=== PATIENT | male | born 1975 | race Two or more races ===

== ENCOUNTER 2022-03-31 09:48 | Emergency (ER) | payer BC ==
[~2022-03-31] VITALS: Ht 167.6 cm; Wt 70.3 kg
[2022-03-31] MEDS ORDERED: METOCLOPRAMIDE HCL 10 MG/2 ML VIAL ONE (10:06)
[2022-03-31] MEDS ORDERED: FAMOTIDINE. 20 MG/2 ML VIAL IV ONE (10:06)
[2022-03-31] MEDS ORDERED: MAG HYDROX/AL HYDROX/SIMETH 30 ML LIQUID UDC ONE (10:07)
[2022-03-31 10:12] LABS: HEMATOCRIT 45.4 % (36.7-47.1); MEAN CORPUSCULAR HEMOGLOBIN 29.3 uug (23.8-33.4); MEAN CORPUSCULAR VOLUME 87.4 fL (73.0-96.2); PLATELET COUNT (AUTO) 256 K/uL (152-348)
[2022-03-31] MEDS: METOCLOPRAMIDE HCL 10 MG/2 ML VIAL IV ONE (10:17)
[2022-03-31] MEDS: IV NORMAL SALINE 1000 ML BAG IV ONE (10:17)
[2022-03-31] MEDS: FAMOTIDINE. 20 MG/2 ML VIAL IV ONE (10:17)
[2022-03-31] MEDS: MAG HYDROX/AL HYDROX/SIMETH 30 ML LIQUID UDC PO ONE (10:18)
--- NOTE | 2022-03-31 10:21 | NUR ---
PT IS IN ROOM #2A. DR WHITNEY EVALUATED THE PT.
[2022-03-31 10:23] LABS: CARBON DIOXIDE 28 mmol/L (21-32); CHLORIDE 102 mmol/L (98-107); CREATININE 0.9 mg/dL (0.6-1.3); GLUCOSE 142 mg/dL (74-106); POTASSIUM 3.5 mmol/L (3.5-5.1); UREA NITROGEN, BLOOD 17 mg/dL (7-18)
[2022-03-31 10:32] LABS: ALANINE AMINOTRANSFERASE 24 U/L (16-63); ALKALINE PHOSPHATASE 87 U/L (50-136); ASPARTATE AMINOTRANSFERASE 11 U/L (15-37); BILIRUBIN,DIRECT 0.1 mg/dL (0.0-0.2); BILIRUBIN,TOTAL 0.3 mg/dL (0.2-1.0); LIPASE 78 U/L (73-393); TOTAL PROTEIN, SERUM 7.4 g/dL (6.4-8.2)
[2022-03-31] MEDS ORDERED: ONDA4TAB11 PO (11:42)
[2022-03-31] MEDS ORDERED: ONDANSETRON 4 MG/2 ML VIAL ONE (11:47)
[2022-03-31] MEDS: ONDANSETRON 4 MG/2 ML VIAL IV ONE (11:52)
--- NOTE | 2022-03-31 11:53 | NUR ---
PT WAS D/C'd TO HOME AFTER DR WHITNEY RE-EVALUATION. D/C INSTRUCTIONS GIVEN TO THE PT.
[2022-03-31 11:54] VITALS: BP 131/78
== END 2022-03-31 12:21 | disposition home or self-care (01) ==
LOC: ER 09:48
DX: R10.13 Epigastric pain (principal); D72.829 Elevated white blood cell count, unspecified; F17.210 Nicotine dependence, cigarettes, uncomplicated; Z87.11 Personal history of peptic ulcer disease; R11.2 Nausea with vomiting, unspecified
CPT/HCPCS: 99285; 96374; 71045; 96361; 96375; 80076; 80048; 83690; 85025; 85730; 84484; 36415; 93005; J3490; J2765; J2405; J7040; A4663